=== PATIENT | male | born 1970 ===

== ENCOUNTER 2016-06-16 11:23 | Emergency (ER) | payer BC, OTHER ==
[~2016-06-16] VITALS: Ht 167.6 cm; Wt 74.3 kg
[~2016-06-16 11:23] MED LIST: BUTACAP36 PO; LSN25 PO; LVQ750 PO
[2016-06-16 11:25] VITALS: TEMP 36.4; Ht 167.6 cm; Wt 74.3 kg
[2016-06-16] MEDS ORDERED: MoRPHine SULFATE 4 MG/ML 1 ML CARP\\VIAL IV STA (12:05)
[2016-06-16] MEDS ORDERED: SODIUM CHLORIDE 0.9% 1000ML 1,000 ML IV STA (12:05)
[2016-06-16] MEDS ORDERED: KETOROLAC TROMETHAMINE 30 MG/ML VIAL IV STA (12:05)
[2016-06-16] MEDS ORDERED: ONDANSETRON INJ 2 MG/ML 2 ML VIAL IV STA (12:05)
[2016-06-16 12:12] LABS: BASO % 0.5 %; BASO ABS # 0.05 K/uL (0-0.2); COMPLETE YES; EOS % 1.1 %; HEMATOCRIT 42.5 % (42-52); IG% 0.4 %; LYMPH % 16.5 %; LYMPH ABS # 1.83 K/uL (1.2-3.4); MEAN PLATELET VOLUME 10.2 fL (7.4-10.4); MONO % 6.1 %; NEUT % 75.4 %; PLATELET COUNT 311 K/uL (130-400); RED BLOOD COUNT 4.94 M/uL (4.7-6.1); WHITE BLOOD COUNT 11.07 K/uL (4.8-10.8)
[2016-06-16 12:30] LABS: INR 0.9 (0.9-1.1); PARTIAL THROMBOPLASTIN RATIO 1.2; PROTHROMBIN TIME (PATIENT) 10.1 SECONDS (9.0-12.0)
[2016-06-16 12:32] LABS: MANUAL MICROSCOPIC REQUIRED? NO; REVIEW REQ? NO; URINE APPEARANCE CLEAR (CLEAR); URINE BILIRUBIN NEG (NEG); URINE COLOR YELLOW; URINE NITRITE NEG (NEG); URINE SPECIFIC GRAVITY 1.012 (1.000-1.030); UROBILINOGEN NEG (NEG)
[2016-06-16 12:38] LABS: ALB/GLOB RATIO 1.1 (0.9-2); CALCIUM 8.8 mg/dl (8.5-10.1); POTASSIUM 3.4 mmol/L (3.5-5.1)
--- NOTE | 2016-06-16 12:42 | DIAGNOSTIC IMAGING REPORT ---
ABDOMEN AND PELVIS CT WITHOUT CONTRAST CT DOSE: 282.14 mGy.cm HISTORY: Flank pain R upper back/flank/RUQ pain TECHNIQUE: Multiaxial CT images of the abdomen and pelvis were performed without contrast. COMPARISON STUDY: None. FINDINGS: Lung bases are clear. Liver spleen and pancreas are unremarkable. Gallbladder is negative for distention. Kidneys negative for calcification or hydronephrosis. Bowel pattern overall is nonobstructive. The appendix is normal in appearance. It is retrocecal in location. There is a small appendicolith Bowel pattern overall is unremarkable. There is no evidence for significant free fluid within the pelvic cul-de-sac. IMPRESSION: No significant abnormality identified within the abdomen or pelvis. Electronically signed by: Praveen Phillips M.D. 06/16/2016 12:41 PM Dictated Date/Time: 06/16/2016 12:35 PM
--- NOTE | 2016-06-16 14:04 | DIAGNOSTIC IMAGING REPORT ---
1. Ultrasound GALLBLADDER-ABD LIMITED CLINICAL HISTORY: RUQ pain pain. Nausea. TECHNIQUE: Ultrasound COMPARISON STUDY: CT same date FINDINGS: Trace gallbladder sludge. Gallbladder wall 2 mm. Common bile or 4 mm. Liver is uniform throughout. Pancreas unremarkable. Right kidney negative for hydronephrosis. Very small upper pole right renal cyst. IMPRESSION: Trace gallbladder sludge. Possible gallstone within the gallbladder neck. Normal caliber bile ducts. Otherwise negative study right upper quadrant Electronically signed by: Praveen Phillips M.D. 06/16/2016 2:03 PM Dictated Date/Time: 06/16/2016 2:01 PM
[2016-06-16] MEDS ORDERED: OXYC1TAB3 PO (14:38)
[2016-06-16] MEDS ORDERED: OXYC-57 PO (14:46)
[2016-06-16 14:53] VITALS: BP 158/94; PULSE 73; O2SAT 99
--- NOTE | 2016-06-16 14:53 | EMERGENCY ROOM VISIT NOTE ---
History First contact with patient: 11:57 Chief Complaint: BACK PAIN Stated Complaint: BACK AND ABDOMEN PAIN History of Present Illness The patient is a 46 year old male who presents to the Emergency Room with complaints of right-sided back pain, flank pain and right upper quadrant pain. The patient reports that he first noticed back pain approximately 3 weeks ago. The pain then started to go along the right flank region, and over the past 6 hours, has now become a severe right upper quadrant pain. The patient has not noticed any darkened urine or blood in the urine. He has had increased urinary frequency. He denies any left-sided back pain, significant lower abdominal pain , diarrhea, constipation, chest pain, shortness of breath or recent upper respiratory infection. There are no alleviating or grating factors for the pain , which the patient describes as a constant pain with occasional sharp jabs. It does not wax and wane. He currently rates his discomfort a 6 out of 10, but at its worst, is rated a 10 out of 10. The patient denies any prior history of kidney stones, pancreatitis, hepatitis or gallbladder issues. Review of Systems HEENT: Denies dizziness, visual problems, hearing loss, tinnitus. Denies difficulty swallowing or oral lesions. PULMONARY: Denies cough, shortness of breath, sputum production or hemoptysis. CARDIOVASCULAR: Denies chest pain, palpitations, dyspnea on exertion, orthopnea or peripheral edema. GASTROINTESTINAL: Denies diarrhea, constipation, nausea or vomiting. Otherwise see history of present illness. GENITOURINARY: Denies dysuria, frequency, urgency or nocturia. NEUROLOGIC: Denies history of epilepsy, CVA, TIA or chronic headaches. MUSCULOSKELETAL: Denies history of joint tenderness/swelling. SKIN: Denies rashes or lesions. PSYCHIATRIC: Denies history of depression or mental illness. ENDOCRINE: Denies history of diabetes or thyroid disorders. Past Medical/Surgical History Medical Problems: (1) Cholelithiasis Nos (2) Hypertension Nos (3) Pneumonia Due To Mycoplasma Pneumoniee Surgical Problems: (1) No history of previous surgery Family History FH: GI cancer FH: diabetes mellitus Social History Smoking Status: Never Smoker Alcohol Use: occasionally Marital Status: Occupation Status: employed Current/Historical Medications Scheduled PRN Oxycodone Ir (Roxicodone Ir), 1-2 TAB PO Q4H PRN for Pain Allergies Coded Allergies: No Known Allergies (Unverified , 06/16/16) Physical Exam Vital Signs Date Time Temp Pulse Resp B/P Pulse Ox O2 Delivery O2 Flow Rate FiO2 06/16/16 13:59 70 18 145/93 99 Room Air 06/16/16 11:25 36.4 85 20 188/123 100 Room Air Physical Exam CONSTITUTIONAL: Healthy and well nourished. Alert and oriented X 3 with positive affect. The patient appears in moderate discomfort from pain. HEENT: Normocephalic, atraumatic. Pupils equal, round and reactive. Sclerae icterus or conjunctival injection/pallor. NECK: Full active range of motion without discomfort. RESPIRATORY: Clear to auscultation bilaterally with no wheezing, crackles, rhonchi or stridor. CARDIOVASCULAR: Regular rate and rhythm with no murmurs, rubs or gallops. GASTROINTESTINAL: Bowel sounds present in all quadrants. Negative CVA tenderness. Negative McBurney's point tenderness. Negative Tenorio sign. The patient does have mild discomfort through the right upper quadrant and flank region. MUSCULOSKELETAL: Full range of motion of all joints without discomfort. INTEGUMENTARY: No rash or other significant dermatologic conditions noted. Specifically the patient has no right torso dermatomal rash. NEUROLOGIC: Cranial nerves II-XII grossly intact. No focal neurologic deficits noted. Medical Decision & Procedures ER Provider Diagnostic Interpretation: Noncontrast CT of the abdomen and pelvis does not show any evidence for ureteral calculi or other acute findings. Radiologist report is as follows: ABDOMEN AND PELVIS CT WITHOUT CONTRAST CT DOSE: 282.14 mGy.cm HISTORY: Flank pain R upper back/flank/RUQ pain TECHNIQUE: Multiaxial CT images of the abdomen and pelvis were performed without contrast. COMPARISON STUDY: None. FINDINGS: Lung bases are clear. Liver spleen and pancreas are unremarkable. Gallbladder is negative for distention. Kidneys negative for calcification or hydronephrosis. Bowel pattern overall is nonobstructive. The appendix is normal in appearance. It is retrocecal in location. There is a small appendicolith Bowel pattern overall is unremarkable. There is no evidence for significant free fluid within the pelvic cul-de-sac. IMPRESSION: No significant abnormality identified within the abdomen or pelvis. Gallbladder ultrasound shows gallbladder sludge and possible stone within the gallbladder neck. No gallbladder wall thickening or common bile duct dilatation. Radiologist report is as follows: Ultrasound GALLBLADDER-ABD LIMITED CLINICAL HISTORY: RUQ pain pain. Nausea. TECHNIQUE: Ultrasound COMPARISON STUDY: CT same date FINDINGS: Trace gallbladder sludge. Gallbladder wall 2 mm. Common bile or 4 mm. Liver is uniform throughout. Pancreas unremarkable. Right kidney negative for hydronephrosis. Very small upper pole right renal cyst. IMPRESSION: Trace gallbladder sludge. Possible gallstone within the gallbladder neck. Normal caliber bile ducts. Otherwise negative study right upper quadrant Laboratory Results 06/16/16 12:00 Red Blood Count 4.94, Mean Corpuscular Volume 86.0, Mean Corpuscular Hemoglobin 31.0, Mean Corpuscular Hemoglobin Concent 36.0, Mean Platelet Volume 10.2, Neutrophils (%) (Auto) 75.4, Lymphocytes (%) (Auto) 16.5, Monocytes (%) (Auto) 6.1, Eosinophils (%) (Auto) 1.1, Basophils (%) (Auto) 0.5, Neutrophils # (Auto) 8.35, Lymphocytes # (Auto) 1.83, Monocytes # (Auto) 0.68, Eosinophils # (Auto) 0.12, Basophils # (Auto) 0.05 06/16/16 12:00 Test 06/16/16 12:00 White Blood Count 11.07 K/uL (4.8-10.8) Red Blood Count 4.94 M/uL (4.7-6.1) Hemoglobin 15.3 g/dL (14.0-18.0) Hematocrit 42.5 % (42-52) Mean Corpuscular Volume 86.0 fL (80-100) Mean Corpuscular Hemoglobin 31.0 pg (25-34) Mean Corpuscular Hemoglobin Concent 36.0 g/dl (32-36) Platelet Count 311 K/uL (130-400) Mean Platelet Volume 10.2 fL (7.4-10.4) Neutrophils (%) (Auto) 75.4 % Lymphocytes (%) (Auto) 16.5 % Monocytes (%) (Auto) 6.1 % Eosinophils (%) (Auto) 1.1 % Basophils (%) (Auto) 0.5 % Neutrophils # (Auto) 8.35 K/uL (1.4-6.5) Lymphocytes # (Auto) 1.83 K/uL (1.2-3.4) Monocytes # (Auto) 0.68 K/uL (0.11-0.59) Eosinophils # (Auto) 0.12 K/uL (0-0.5) Basophils # (Auto) 0.05 K/uL (0-0.2) RDW Standard Deviation 39.0 fL (36.4-46.3) RDW Coefficient of Variation 12.3 % (11.5-14.5) Immature Granulocyte % (Auto) 0.4 % Immature Granulocyte # (Auto) 0.04 K/uL (0.00-0.02) Prothrombin Time 10.1 SECONDS (9.0-12.0) Prothromb Time International Ratio 0.9 (0.9-1.1) Activated Partial Thromboplast Time 32.2 SECONDS (21.0-31.0) Partial Thromboplastin Ratio 1.2 Urine Color YELLOW Urine Appearance CLEAR (CLEAR) Urine pH 8.0 (4.5-7.5) Urine Specific [place] 1.012 (1.000-1.030) Urine Protein NEG (NEG) Urine Glucose (UA) NEG (NEG) Urine Ketones NEG (NEG) Urine Occult Blood NEG (NEG) Urine Nitrite NEG (NEG) Urine Bilirubin NEG (NEG) Urine Urobilinogen NEG (NEG) Urine Leukocyte Esterase NEG (NEG) Anion Gap 11.0 mmol/L (3-11) Est Creatinine Clear Calc Drug Dose 83.2 ml/min Estimated GFR () 104.1 Estimated GFR (Non- 89.9 BUN/Creatinine Ratio 13.0 (10-20) Calcium Level 8.8 mg/dl (8.5-10.1) Total Bilirubin 1.1 mg/dl (0.2-1) Aspartate Amino Transf (AST/SGOT) 21 U/L (15-37) Alanine Aminotransferase (ALT/SGPT) 47 U/L (12-78) Alkaline Phosphatase 132 U/L (45-117) Total Protein 8.4 gm/dl (6.4-8.2) Albumin 4.4 gm/dl (3.4-5.0) Globulin 4.0 gm/dl (2.5-4.0) Albumin/Globulin Ratio 1.1 (0.9-2) Lipase 239 U/L (73-393) The above labs were reviewed. CBC shows a mild leukocytosis with left shift and bandemia. LFTs are normal with a mildly elevated alkaline phosphatase and total bilirubin of 1.1. Potassium is 3.4. Creatinine is normal. Urinalysis is normal. Coagulation studies are also normal. Medications Administered Medications (Trade) Dose Ordered Sig/[place] Route Start Time Stop Time Status Last Admin Dose Admin Sodium Chloride (Nss 1000ml) 1,000 ml @ 999 mls/hr Q1H1M STAT IV 06/16/16 12:05 06/16/16 13:05 DC 06/16/16 12:17 999 MLS/HR Ketorolac Tromethamine (Toradol Inj) 30 mg NOW STAT IV 06/16/16 12:05 06/16/16 12:07 DC 06/16/16 12:18 30 MG Morphine Sulfate (MoRPHine SULFATE INJ) 4 mg NOW STAT IV 06/16/16 12:05 06/16/16 12:07 DC 06/16/16 12:17 4 MG Ondansetron HCl (Zofran Inj) 4 mg NOW STAT IV 06/16/16 12:05 06/16/16 12:07 DC 06/16/16 12:18 4 MG Procedure 1. IV hydration: The patient received a liter normal saline bolus 2. IV medications: The patient initially was administered morphine 4 mg, Toradol 30 mg and Zofran 4 mg IVP ED Course Patient history and physical exam were performed. Nurse's notes were reviewed. Vital signs were reviewed and were normal. I also reviewed prior medical records, showing that the patient was seen in the emergency department as December 2013. At that time, the patient did have an ultrasound performed showing cholelithiasis. He also had additional workup performed at that time that was otherwise normal. IV access was established, and labs were drawn. The patient was hydrated with a liter normal saline. He received IV morphine, Toradol and Zofran for pain. This quickly reduced his pain to a 1 out of 10. Review of labs shows a mild leukocytosis with left shift and bandemia. Alkaline phosphatase and total bilirubin were also mildly elevated; however, LFTs and electrolytes were otherwise normal. Urinalysis also was normal. A noncontrast CT of the abdomen and pelvis did not show any acute findings. Gallbladder ultrasound shows gallbladder sludge and possible stone within the gallbladder neck. Otherwise, no gallbladder wall or CBD dilatation noted. On reassessment, the patient reported feeling much better. Ultrasound studies were reviewed with the patient. The case was also discussed with Dr. Freeman, ED attending physician, who agrees with outpatient follow-up and management. The patient was provided contact information for Dr. Lawernce, general surgeon on- call. The patient will be provided a prescription for Percocet as needed for pain. He was instructed to refrain from high protein/fatty foods, alcohol and caffeine for now. He was instructed to return to the emergency department for any progressively worsening pain, vomiting or fever. The patient was happy with plan of care, and voiced understanding of all discharge instructions. Medical Decision Workup today is most suggestive of biliary colic. He does have gallbladder sludge and a possible stone within the neck of the gallbladder. There is no ultrasound findings to suggest cholecystitis. Additional laboratory studies are not suggestive of pancreatitis, cholecystitis or urinary tract infection. I also do not suspect pyelonephritis. I also do not suspect cardiopulmonary referred pain. [facility] Drug Monitoring Program Search Results: patient reviewed within database, no issues identified Impression Primary Impression: Biliary colic Additional Impression: Gallbladder sludge Departure Information Prescriptions Oxycodone Ir (Roxicodone Ir) 5 Mg Tab 1-2 TAB PO Q4H Y for Pain, #24 TAB For Initial Treatment Prov: Dylon Vieira PA 06/16/16 Referrals No Doctor, Assigned (PCP) Patient Instructions My [facility] Problem Qualifiers
== END 2016-06-16 14:54 | disposition home or self-care (01) ==
LOC: C.EDB 11:25 → C.EDC 14:54
DX: K80.50 Calculus of bile duct without cholangitis or cholecystitis without obstruction (principal); K82.8 Other specified diseases of gallbladder; I10 Essential (primary) hypertension; Z87.01 Personal history of pneumonia (recurrent); Z80.0 Family history of malignant neoplasm of digestive organs; Z83.3 Family history of diabetes mellitus

== ENCOUNTER 2017-06-11 10:47 | Emergency (ER) | payer BC ==
[2017-06-11 10:52] VITALS: TEMP 36.9
[2017-06-11 11:09] VITALS: O2SAT 98
--- NOTE | 2017-06-11 11:10 | EMERGENCY ROOM VISIT NOTE ---
History Report prepared by Arlette: Radha Knowles Under the Supervision of: Dr. Fidencio Childress D.O. First contact with patient: 11:01 Chief Complaint: CHEST PAIN Stated Complaint: RT SHOULDER PAIN, SOB Nursing Triage Summary: triage note: pt reports right sided chest pain and back pain for the past two days. pt reports shortness of breath at times "when i breathe it feels heavy." pt denies any cardiac hx. History of Present Illness The patient is a 47 year old male who presents to the Emergency Room with complaints of waxing and waning chest pain beginning 4 days ago. He describes the pain as a pressure pain. The patient reports that walking exacerbates his pain and that it is difficult to take a deep breath. The patient also reports having swelling in his legs and abdominal pain. The patient reports that he has hypertension but states that he does not take his medication anymore. He reports a history of a cholecystectomy last year. He states that he takes no daily medications and reports no other surgeries. Source of History: patient Onset: 4 days ago Position: chest Quality: pressure Timing: waxes/wanes Modifying Factors (Worsening): other (walking ) Associated Symptoms: + abdominal pain Note: additional symptom: swelling in legs Review of Systems See HPI for pertinent positives & negatives. A total of 10 systems reviewed and were otherwise negative. Past Medical & Surgical Medical Problems: (1) Cholelithiasis Nos (2) Hypertension Nos (3) Pneumonia Due To Mycoplasma Pneumoniee Surgical Problems: (1) Hx of cholecystectomy (2) No history of previous surgery Family History FH: GI cancer FH: diabetes mellitus Social History Smoking Status: Never Smoker Alcohol Use: occasionally Marital Status: Occupation Status: employed Current/Historical Medications No Active Prescriptions or Reported Meds Allergies Coded Allergies: No Known Allergies (Unverified , 06/16/16) Physical Exam Vital Signs Date Time Temp Pulse Resp B/P (MAP) Pulse Ox O2 Delivery O2 Flow Rate FiO2 06/11/17 13:02 71 18 155/90 06/11/17 11:57 72 18 139/101 98 Room Air 06/11/17 11:09 98 Room Air 06/11/17 11:04 74 06/11/17 11:04 98 Room Air 06/11/17 10:52 36.9 81 18 196/121 98 Room Air Physical Exam GENERAL: Patient is awake, alert, and in no acute distress. Patient is resting comfortably and showing no signs of anxiety EYES: The conjunctivae are clear. The pupils are round and reactive. EARS, NOSE, MOUTH AND THROAT: The nose is without any evidence of any deformity. Mucous membranes are moist tongue is midline NECK: The neck is nontender and supple. RESPIRATORY: Normal respiratory effort is noted there is no evidence of wheezing rhonchi or rales CARDIOVASCULAR: Regular rate and rhythm noted there no murmurs rubs or gallops normal S1 normal S2 GASTROINTESTINAL: The abdomen is soft. Bowel sounds are present in all quadrants. Abdomen is nontender MUSCULOSKELETAL/EXTREMITIES: There is no evidence of gross deformity full range of motion is noted in the hips and shoulders SKIN: There is no obvious evidence of any rash. There are no petechiae, pallor or cyanosis noted. NEUROLOGIC: Patient is awake alert and oriented x3 strength is symmetric patellar reflexes are 2+ bilaterally Medical Decision & Procedures ER Provider Diagnostic Interpretation: Radiology results as stated below per my review and radiologist interpretation: CHEST ONE VIEW PORTABLE CLINICAL HISTORY: Atypical chest pain COMPARISON STUDY: December 2013 FINDINGS: The cardiac and mediastinal contours are normal. There is no evidence of focal pulmonary consolidation. There is no evidence of failure. No pleural effusions are visualized.[ There is been interval resolution of the previously identified left basal airspace opacities. IMPRESSION: No active disease in the chest. Electronically signed by: Aren Wilks M.D. 06/11/2017 11:26 AM Dictated Date/Time: 06/11/2017 11:26 AM Laboratory Results 06/11/17 11:04 Red Blood Count 5.17, Mean Corpuscular Volume 88.0, Mean Corpuscular Hemoglobin 31.3, Mean Corpuscular Hemoglobin Concent 35.6, Mean Platelet Volume 10.1, Neutrophils (%) (Auto) 67.4, Lymphocytes (%) (Auto) 23.0, Monocytes (%) (Auto) 6.9, Eosinophils (%) (Auto) 2.0, Basophils (%) (Auto) 0.5, Neutrophils # (Auto) 6.37, Lymphocytes # (Auto) 2.17, Monocytes # (Auto) 0.65, Eosinophils # (Auto) 0.19, Basophils # (Auto) 0.05 06/11/17 11:04 Test 06/11/17 11:04 06/11/17 11:12 White Blood Count 9.45 K/uL (4.8-10.8) Red Blood Count 5.17 M/uL (4.7-6.1) Hemoglobin 16.2 g/dL (14.0-18.0) Hematocrit 45.5 % (42-52) Mean Corpuscular Volume 88.0 fL (80-100) Mean Corpuscular Hemoglobin 31.3 pg (25-34) Mean Corpuscular Hemoglobin Concent 35.6 g/dl (32-36) Platelet Count 325 K/uL (130-400) Mean Platelet Volume 10.1 fL (7.4-10.4) Neutrophils (%) (Auto) 67.4 % Lymphocytes (%) (Auto) 23.0 % Monocytes (%) (Auto) 6.9 % Eosinophils (%) (Auto) 2.0 % Basophils (%) (Auto) 0.5 % Neutrophils # (Auto) 6.37 K/uL (1.4-6.5) Lymphocytes # (Auto) 2.17 K/uL (1.2-3.4) Monocytes # (Auto) 0.65 K/uL (0.11-0.59) Eosinophils # (Auto) 0.19 K/uL (0-0.5) Basophils # (Auto) 0.05 K/uL (0-0.2) RDW Standard Deviation 38.0 fL (36.4-46.3) RDW Coefficient of Variation 11.9 % (11.5-14.5) Immature Granulocyte % (Auto) 0.2 % Immature Granulocyte # (Auto) 0.02 K/uL (0.00-0.02) Prothrombin Time 10.3 SECONDS (9.0-12.0) Prothromb Time International Ratio 1.0 (0.9-1.1) Activated Partial Thromboplast Time 28.0 SECONDS (21.0-31.0) Partial Thromboplastin Ratio 1.1 Anion Gap 7.0 mmol/L (3-11) Estimated GFR () 117.5 Estimated GFR (Non- 101.4 BUN/Creatinine Ratio 9.6 (10-20) Calcium Level 9.2 mg/dl (8.5-10.1) Total Bilirubin 1.1 mg/dl (0.2-1) Direct Bilirubin 0.2 mg/dl (0-0.2) Aspartate Amino Transf (AST/SGOT) 16 U/L (15-37) Alanine Aminotransferase (ALT/SGPT) 43 U/L (12-78) Alkaline Phosphatase 102 U/L (45-117) Total Creatine Kinase 88 U/L (39-308) Creatine Kinase MB 2.4 ng/ml (0.5-3.6) Creatine Kinase MB Ratio 2.7 (0-3.0) Troponin I < 0.015 ng/ml (0-0.045) Pro-B-Type Natriuretic Peptide 32 pg/ml (0-450) Total Protein 8.3 gm/dl (6.4-8.2) Albumin 4.4 gm/dl (3.4-5.0) Lipase 193 U/L (73-393) Bedside D-Dimer 97 ng/mlFEU (0-450) Laboratory results per my review. ECG Per My Interpretation Indication: chest pain Rate (beats per minute): 73 Rhythm: sinus rhythm Findings: PVC, ST depression (Inferior, lateral ) Change: ST depressions new compared to 01/12/14 ED Course 1104: The patient was evaluated in room C11B. A complete history and physical examination were performed. 1155: I checked on the patient. 1230: Upon reevaluation, the patient is resting. I discussed the results and treatment plan with him. He verbalized agreement of the treatment plan. He was discharged home. Medical Decision Differential diagnosis: Etiologies such as cardiac ischemia, aortic dissection, pulmonary embolism, pneumonia, pneumothorax, musculoskeletal, infections, pericarditis, myocarditis , esophageal rupture, gastrointestinal, as well as others were entertained. Nursing notes reviewed. The patient is a 47-year-old male who presented to the emergency department for an evaluation of right-sided chest pain. The pain appeared to be pleuritic in nature. He did not have any tenderness in the abdomen. His d-dimer was normal. He had an elevated blood pressure noted but has a history of hypertension but has not been taking his blood pressure medication. I discussed the patient's laboratory and radiographic studies with him. I also discussed the limitations of the emergency department workup for chest pain with him. At this time I feel the patient can follow-up with his primary care physician. He was encouraged to continue all medications as prescribed and rest. I also encouraged him to avoid any strenuous activity. He was also encouraged to return to the emergency department immediately if symptoms change worsen or the need arises. Medication Reconcilliation Current Medication List: was personally reviewed by me Blood Pressure Screening Patient's blood pressure: Elevated blood pressure Blood pressure disposition: Elevated BP felt to be situational Impression Primary Impression: Chest pain Additional Impression: Pleurisy Scribe Attestation The scribe's documentation has been prepared under my direction and personally reviewed by me in its entirety. I confirm that the note above accurately reflects all work, treatment, procedures, and medical decision making performed by me. Departure Information Dispostion Home / Self-Care Prescriptions No Active Prescriptions or Reported Meds Referrals No Doctor, Assigned (PCP) Alina Marmolejo PA Forms Call Back Authorization, HOME CARE DOCUMENTATION FORM, IMPORTANT VISIT INFORMATION Patient Instructions ED Chest Pain Atypical Unkn Cause, My [facility] Additional Instructions Follow-up with your family doctor as soon as possible for further evaluation. You may require further testing such as a stress test if symptoms do not improve. Rest and avoid any strenuous activity. Restart your blood pressure medicine. It is very important that you manage her blood pressure. Return to the emergency department immediately if symptoms change worsening of the need arises. Problem Qualifiers Primary Impression: Chest pain Chest pain type: unspecified Qualified Codes: R07.9 - Chest pain, unspecified
[2017-06-11 11:25] LABS: BASO % 0.5 %; BASO ABS # 0.05 K/uL (0-0.2); EOS ABS # 0.19 K/uL (0-0.5); HEMATOCRIT 45.5 % (42-52); HEMOGLOBIN 16.2 g/dL (14.0-18.0); IG# 0.02 K/uL (0.00-0.02); LYMPH ABS # 2.17 K/uL (1.2-3.4); MEAN CORPUSCULAR HEMOGLOBIN 31.3 pg (25-34); MEAN CORPUSCULAR HGB CONC 35.6 g/dl (32-36); MEAN PLATELET VOLUME 10.1 fL (7.4-10.4); MONO % 6.9 %; MONO ABS # 0.65 K/uL (0.11-0.59); NEUT % 67.4 %; NEUT ABS # 6.37 K/uL (1.4-6.5); PLATELET COUNT 325 K/uL (130-400); RED CELL DISTRIBUTION WIDTH CV 11.9 % (11.5-14.5); WHITE BLOOD COUNT 9.45 K/uL (4.8-10.8)
--- NOTE | 2017-06-11 11:27 | DIAGNOSTIC IMAGING REPORT ---
CHEST ONE VIEW PORTABLE CLINICAL HISTORY: Atypical chest pain COMPARISON STUDY: December 2013 FINDINGS: The cardiac and mediastinal contours are normal. There is no evidence of focal pulmonary consolidation. There is no evidence of failure. No pleural effusions are visualized.[ There is been interval resolution of the previously identified left basal airspace opacities. IMPRESSION: No active disease in the chest. Electronically signed by: Aren Wilks M.D. 06/11/2017 11:26 AM Dictated Date/Time: 06/11/2017 11:26 AM
[2017-06-11 11:42] LABS: ALBUMIN 4.4 gm/dl (3.4-5.0); ALT/SGPT 43 U/L (12-78); AST/SGOT 16 U/L (15-37); BLOOD UREA NITROGEN 9 mg/dl (7-18); CALCIUM 9.2 mg/dl (8.5-10.1); CARBON DIOXIDE 29 mmol/L (21-32); GLUCOSE 93 mg/dl (70-99); LIPASE 193 U/L (73-393); POTASSIUM 3.1 mmol/L (3.5-5.1); SODIUM 137 mmol/L (136-145)
[2017-06-11 11:48] LABS: ALKALINE PHOSPHATASE 102 U/L (45-117); CKMB 2.4 ng/ml (0.5-3.6); TOTAL PROTEIN 8.3 gm/dl (6.4-8.2)
[2017-06-11 11:57] VITALS: O2SAT 98
[2017-06-11 13:02] VITALS: BP 155/90; PULSE 71
== END 2017-06-11 13:29 | disposition home or self-care (01) ==
LOC: C.EDB 10:48 → C.EDC 13:29
DX: R07.9 Chest pain, unspecified (principal); R09.1 Pleurisy; R60.0 Localized edema; R10.9 Unspecified abdominal pain; I10 Essential (primary) hypertension; Z90.49 Acquired absence of other specified parts of digestive tract; Z80.0 Family history of malignant neoplasm of digestive organs; Z83.3 Family history of diabetes mellitus